=== PATIENT | female | born 1935 | race Caucasian/White ===

== ENCOUNTER 2023-01-24 15:13 | Inpatient (IN) | payer MEDICARE, BC ==
[~2023-01-24] VITALS: Ht 160 cm; Wt 69.9 kg
--- NOTE | 2023-01-24 14:00 | NUR ---
NADIA NOTES - MRSA COLLECTED, CALLED LABORATORY FOR PICK-UP Addendum: 01/24/23 at 1815 by CHARITY REINOSO RN INCORRECT TIME: 1600
[2023-01-24 15:25] VITALS: BP 159/82
--- NOTE | 2023-01-24 15:45 | NUR ---
GPS HIGHWAY PATROL OFFICER NOTE: PT IS A 87 YO FEMALE ADMITTED FROM [facility], PLACED ON 5150 FOR DANGER TO SELF, PER HOLD "DAUGHTER KRYSTAL HAN RECEIVED A CALL FROM PATIENT WHO SAID SHE WANTED TO KILL HERSELF AND TOOK A BUNCH OF OXYCODONE AND OXYCONTIN OF UNKNOWN AMOUNT", THIS WAS DAYS AGO, ON 01/22/2023. UPON FACE TO FACE, PT IS AOX4, DISHEVELED, CLEAR SPEECH, PATIENT DENIES SUICIDAL IDEATION, HOMICIDAL IDEATION, AUDIOVISUAL HALLUCINATIONS, PT IS DEPRESSED, ANXIOUS, DISORGANIZED, EPISODES OF CONFUSION AND FORGETFULNESS. VS TAKEN, STABLE, RECORDED. ON ROOM AIR, NOT IN ANY APPARENT DISTRESS AT THE MOMENT, DENIES PAIN NOR DISCOMFORT, SKIN IS INTACT. CONTACTED DR LOGAN AND DR UGARTE AND INFORMED THEM OF THE ADMISSION WITH PSYCHIATRIC ADMITTING ORDERS. PATIENT'S HANDBOOK GIVEN WITH THE PATIENT'S RIGHT AND GUIDE TO PRESCRIPTION. WILL CONTINUE TO MONITOR PATIENT Q15 MINUTES FOR SAFETY AND BEHAVIOR PER GPS PROTOCOL.
[2023-01-24] MEDS ORDERED: BLOOD SUGAR DIAGNOSTIC 1 EACH STRIP IN ONE (16:30)
[2023-01-24] MEDS ORDERED: MAG HYDROX/AL HYDROX/SIMETH 30 ML UDC PO PRN (16:30)
[2023-01-24] MEDS ORDERED: ZOLPIDEM TARTRATE 5 MG TABLET PO PRN (16:30)
[2023-01-24] MEDS ORDERED: SIMV-49 PO (16:33)
[2023-01-24] MEDS ORDERED: VENL150C58 PO (16:33)
[2023-01-24] MEDS ORDERED: ALPR0.255 PO (16:33)
[2023-01-24] MEDS ORDERED: AMLO-212 PO (16:33)
[2023-01-24] MEDS ORDERED: TRAZ-257 PO (16:33)
[2023-01-24] MEDS ORDERED: GABA300C PO (16:33)
[2023-01-24] MEDS ORDERED: LEVO88TA5 PO (16:33)
[2023-01-24] MEDS ORDERED: VALS160T29 PO (16:33)
[2023-01-24 16:40] VITALS: BP 159/82
[2023-01-24] MEDS ORDERED: CHOL100043 PO (16:46)
[2023-01-24] MEDS ORDERED: OXYC1TAB12 PO (16:52)
[2023-01-24] MEDS: LORAZEPAM 0.5 MG TABLET PO PRN (17:53)
--- NOTE | 2023-01-24 18:00 | NUR ---
RN NOTES - PATIENT APPEARS TO BE AGITATED, ANXIOUS, EMOTIONAL, CRYING, ASKING FOR ANXIETY MEDICATION - GIVEN ATIVAN PO PRN ORDERED. WILL CONTINUE TO MONITOR
--- NOTE | 2023-01-24 18:05 | NUR ---
RN NOTES - PT REFUSED ALL HER DINNER SAYING IT IS "UNAPPETIZING", I OFFERED GELATIN AND CRACKERS AND APPLE SAUCE, PT AGREED. ENCOURAGED PT TO EAT, SHE SAID SHE WILL EAT THEM, LEFT SERVINGS, OPENED. WILL CONTINUE TO MONITOR.
--- NOTE | 2023-01-24 19:24 | NUR ---
GPS RN CLOSING NOTES PATIENT IS WITH SON NURA AT BEDSIDE, PATIENT CALM, AOX4, HARD OF HEADING, RESPONSIVE, ABLE TO MAKE NEEDS KNOWN. NURA WANTS TO SPEAK TO DR LOGAN, MENTIONED I LEFT A NOTE FOR DR LOGAN TO CONTACT HIM TOMORROW MORNING REGARDING THE STATUS OF HIS MOM AND SOME QUESTIONS REGARDING ATIVAN, GABAPENTIN VS WELLBUTRIN, AND TRAZODONE MEDICATIONS. PT IS NOT IN ANY FORM OF ACUTE DISTRESS AT THIS TIME. PROVIDED WALKER FOR THE PATIENT WELL. NO SI/HI AT THIS TIME. SAFETY MEASURES MAINTAINED. ENDORSED TO BLUEPRINT PROCESSOR NURSE.
[2023-01-24 20:27] VITALS: BP 158/91
--- NOTE | 2023-01-25 05:41 | NUR ---
END OF SHIFT REPORT Patient in bed, sleeping arouses easily. Calm and cooperative during the shift. Adequate sleep with Ambien. Fall precaution maintained. Denies pain. Plan for Continue inpatient MHU hospitalization. Behavior management per psychiatry. Will endorse to oncoming RN.
[2023-01-25 08:00] VITALS: BP 132/79
[2023-01-25 08:06] LABS: ALANINE AMINOTRANSFERASE 16 U/L (12-78); ALKALINE PHOSPHATASE 102 U/L (46-116); ASPARTATE AMINOTRANSFERASE 27 U/L (15-37); BILIRUBIN,TOTAL 0.5 mg/dL (0.2-1.0); CARBON DIOXIDE 23 mmol/L (21-32); CHLORIDE 106 mmol/L (98-107); CREATININE 1.3 mg/dL (0.6-1.3); GLUCOSE 106 mg/dL (74-106); POTASSIUM 3.6 mmol/L (3.5-5.1); SODIUM SERUM 141 mmol/L (136-145); UREA NITROGEN, BLOOD 19 mg/dL (7-18)
[2023-01-25 08:07] LABS: ALBUMIN 3.5 g/dL (3.4-5.0)
[2023-01-25 08:20] LABS: CHOLESTEROL 173 mg/dL (<200); TRIGLYCERIDES 149 mg/dL (30-150)
[2023-01-25 08:21] LABS: HDL CHOLESTEROL 70 mg/dL (40-60); LDL 89 mg/dL (0-99)
--- NOTE | 2023-01-25 10:18 | NUR ---
ERIC Initial Discharge Note: Patient currently resides at home alone located at [address] [place] [address]; ([phone]). ERIC will contact pt's daughter Yady ([phone]) to discuss treatment/discharge plan. ERIC will work with the MD, family, and pt to help coordinate appropriate discharge.
--- NOTE | 2023-01-25 10:18 | NUR ---
ERIC Clinical Note: Pt placed on a 5150 hold for danger to himself. Per hold, pt has been depressed and attempted to overdose on oxycodone. Patient currently resides at home alone located at [address] [place] [address]; ([phone]). ERIC will contact pt's daughter Yady ([phone]) to discuss treatment/discharge plan.
--- NOTE | 2023-01-25 10:19 | NUR ---
Treatment Plan: Pt refused to sign treatment plan and was suspicious.
--- NOTE | 2023-01-25 12:45 | NUR ---
Social Work Note/Substance Abuse Intervention: Patient was provided with a brief substance abuse intervention and referred to [facility] ([phone]), [facility] ([phone]), and [facility] ([phone]) for overdosing on oxycodone.
--- NOTE | 2023-01-25 13:23 | NUR ---
ERIC Family Contact: ERIC contacted pt's daughter Yady ([phone]) and discussed treatment/discharge plan. Daughter stated that pt will be returning home and she is the DPOA, she will send this justowriter operator documents. She stated that she no longer wants to be involved in her mother's treatment. She stated her brother Franc ([phone]) should be contacted. ERIC contacted brother and left a voicemail. Daughter Yady shared that pt has had depression for many years and last psych hospitalization was back in 1973. She shared pt has had shock therapy treatment. She has had multiple break downs and has been battling depression her whole life.
[2023-01-25] MEDS: VENLAFAXINE XR 75 MG CAP.SR.24H PO SCH (14:56)
[2023-01-25] MEDS: BUPROPION XL 150 MG TAB.ER.24 PO SCH (14:56)
[2023-01-25 16:00] VITALS: BP 140/79
[2023-01-25] MEDS: LORAZEPAM 0.5 MG TABLET PO PRN (17:33)
[2023-01-25] MEDS: ENSURE ENLIVE CHOC 237 ML CAN PO SCH (17:33)
--- NOTE | 2023-01-25 17:33 | NUR ---
PATIENT FELT SO DEPRESSED AND VERBALIZES " MY DEPRESSION MEDICATIONS HAS NOT KICKED IN". PATIENT CRIED FOR A BIT AND ASKED FOR ANY ANXIETY MEDICATIONS. ATIVAN 1 MG 2 TABS (0.5/TAB), PRN WERE GIVEN PRESCRIBED
--- NOTE | 2023-01-25 20:40 | NUR ---
RN NOTE PT IN DINING ROOM SITTING IN CHAIR. TRIED TO GET UP TO WALKER, BECAME OUT OF BALANCE THEN FELL ON THE FLOOR ON HER BUTTOCKS. FOUND IN SITTING POSITION. PT DENIES HITTING HER HEAD. PT STATED USING R ELBOW FOR SUPPORT WHILE LEANING ON THE FLOOR. ASSISTED BACK TO BED WITH TWO PERSON ASSIST. VITAL SIGNS STABLE. FULL ASSESSMENT PERFORMED, RANGE OF MOTION WNL. DENIES ANY PAIN AND NO BRUISING NOTED IN BUTTOCKS. INSTRUCTED TO CALL FOR HELP WHEN NEEDED. PT VERBALIZED UNDERSTANDING. DR GARCIA NOTIFIED AND ORDERED XRAY OF RIGHT HIP AND RIGHT ELBOW. [employer] NURSING FINANCE BUSINESS MANAGER, MALU, NOTIFIED ABOUT INCIDENT. PT SON, TERESITA DINH, WAS IN UNIT DURING INCIDENT AND AWARE OF WHAT HAPPENED. PT SON STATED "SHE'S ALRIGHT, SHE'S FINE". INFORMED SON THAT WE WILL HAVE TO INFORM MD ABOUT WHAT HAPPENED AND VERBALIZED APPRECIATION FOR CARE. WILL CONTINUE TO MONITOR AND ASSIST PATIENT. Addendum: 01/25/23 at 2126 by MALCOLM CH RN PT EVALUATION ALSO ORDERED.
[2023-01-25 20:41] VITALS: BP_SYST 126; BP_SYST 128; BP_DIAS 58; BP_DIAS 65
[2023-01-25] MEDS: TRAZODONE 50 MG TABLET PO SCH (21:47)
[2023-01-25] MEDS: GABAPENTIN 300 MG CAPSULE PO SCH (21:47)
--- NOTE | 2023-01-26 07:37 | NUR ---
GPS RN CLOSING NOTES PT IN BED RESTING AT THIS TIME. A/O X3, WITH MOMENTS OF CONFUSION, FORGETFULNESS. S/P GLF LAST NIGHT, INTERVENTIONS PERFORMED PER PROTOCOL. PT DENIES PAIN, NO BRUISING NOTED, XRAYS ARE NEGATIVE. PT STAYED IN BED ALL NIGHT. WILL ENDORSE YOBANI TO DAY SHIFT NURSE.
[2023-01-26] MEDS: ENSURE ENLIVE CHOC 237 ML CAN PO SCH ×3 (07:48→17:19)
[2023-01-26 08:00] VITALS: BP 118/61
[2023-01-26] MEDS: VENLAFAXINE XR 75 MG CAP.SR.24H PO SCH (08:22)
[2023-01-26] MEDS: BUPROPION XL 150 MG TAB.ER.24 PO SCH (08:22)
--- NOTE | 2023-01-26 10:15 | NUR ---
ERIC Note: SW met with pt and gave pt options. SW offered pt nursing facility option and assisted living options. Pt refused nursing facility. Pt stated that her source of income is SSI and she receives about $1,200. [address] her with $1,000 she was not agreeable of this. She said that she would want to sell her house first before going to a [facility]. She prefers to go to [facility] that cost about $6,000. ERIC will discuss this with family.
--- NOTE | 2023-01-26 10:16 | NUR ---
ERIC Family: ERIC contacted pt's son Franc ([phone]) and left a voicemail to contact this publications writer to discuss discharge planning.
--- NOTE | 2023-01-26 15:01 | NUR ---
ERIC Family: ERIC contacted pt's son Franc ([phone]) who stated that upon dc he would want pt to return back home. He stated that he will be taking care of her and he will pick her up when stable. ERIC gave him caregiving resources [facility] ([phone]).
[2023-01-26] MEDS: MAGNESIUM HYDROXIDE 30 ML UDC PO PRN (15:50)
--- NOTE | 2023-01-26 15:53 | NUR ---
RN NOTES: PT COMPLAINED THAT SHE'S CONSTIPATED. PRN MOM 30ML PO GIVEN AT 1550. WILL MONITOR FOR ANY BM.
[2023-01-26 16:00] VITALS: BP 124/68
[2023-01-26 20:32] VITALS: BP 142/88
[2023-01-26] MEDS: GABAPENTIN 300 MG CAPSULE PO SCH (21:19)
[2023-01-26] MEDS: TRAZODONE 50 MG TABLET PO SCH (21:20)
[2023-01-27] MEDS: ACETAMINOPHEN 325 MG TABLET PO PRN ×2 (01:56→17:06)
--- NOTE | 2023-01-27 02:00 | NUR ---
RN NOTE PT STATED THAT SHE NEEDED TYLENOL FOR HER BACK PAIN. SHE STATED HER BACK PAIN WAS 4 OUT OF 10 ON A ZERO TO TEN PAIN SCALE. PRN PO MEDICATION, TYLENOL 650 MG, GIVEN PER MD ORDER.
[2023-01-27 08:00] VITALS: BP 126/66
[2023-01-27] MEDS: BUPROPION XL 150 MG TAB.ER.24 PO SCH (09:51)
[2023-01-27] MEDS: VENLAFAXINE XR 75 MG CAP.SR.24H PO SCH (09:51)
[2023-01-27] MEDS: ENSURE ENLIVE CHOC 237 ML CAN PO SCH ×3 (09:52→17:05)
--- NOTE | 2023-01-27 09:53 | NUR ---
Court Notification: SW contacted pt's son Franc ([phone]) left a voicemail of [phone] hearing.
--- NOTE | 2023-01-27 09:53 | NUR ---
Court Hearing: Patient's court hearing for 5250 was today and it was upheld for GD and danger to self.
[2023-01-27 16:00] VITALS: BP 152/94
[2023-01-27] MEDS ORDERED: oxyCODONE/APAP (5/325 MG) 1 UDTAB TABLET PO PRN (16:30)
[2023-01-27] MEDS: LEVOTHYROXINE SODIUM 88 MCG TABLET PO SCH (17:05)
[2023-01-27] MEDS: SIMVASTATIN 20 MG TABLET PO SCH (17:06)
[2023-01-27] MEDS: MAGNESIUM HYDROXIDE 30 ML UDC PO PRN (17:06)
--- NOTE | 2023-01-27 19:06 | NUR ---
PATIENT HAS BEEN COOPERATIVE BUT MOOD CHANGES FROM TIME TO TIME. PATIENT IS S/P FALL 01/25/23 HOWEVER, AMBULATORY AND OBSERVED WALKING JUST FINE AND STABLE DURING THE DAY. PATIENT ASKED FOR TYLENOL, PRN LATER IN THE DAY
[2023-01-27] MEDS: TRAZODONE 50 MG TABLET PO SCH (21:02)
[2023-01-27] MEDS: GABAPENTIN 300 MG CAPSULE PO SCH (21:02)
[2023-01-28 08:00] VITALS: BP 148/74
[2023-01-28] MEDS: CHOLECALCIFEROL 1,000 UNIT TABLET (VIT D3) PO SCH (08:14)
[2023-01-28] MEDS: BUPROPION XL 150 MG TAB.ER.24 PO SCH (08:14)
[2023-01-28] MEDS: LEVOTHYROXINE SODIUM 88 MCG TABLET PO SCH (08:14)
[2023-01-28] MEDS: VENLAFAXINE XR 75 MG CAP.SR.24H PO SCH (08:14)
[2023-01-28] MEDS: VALSARTAN 40 MG TABLET PO SCH (08:15)
[2023-01-28] MEDS: ENSURE ENLIVE CHOC 237 ML CAN PO SCH ×3 (08:15→17:03)
[2023-01-28 16:00] VITALS: BP 124/71
[2023-01-28] MEDS: SIMVASTATIN 20 MG TABLET PO SCH (17:03)
[2023-01-28 20:00] VITALS: BP 141/72
--- NOTE | 2023-01-28 20:02 | NUR ---
RN NOTES: RECEIVED PATIENT RESTING IN ROOM, A/OX3. NO S/SX OF ACUTE DISTRESS NOTED. PATIENT REMAINS EASILY AGITATED,DISORGNIZED,DEPRESSED, MED COMPLIANT, COOPERATIVE TO CARE. DENIES SI/HI/AVH AT THIS TIME. SAFETY PRECAUTIONS MAINTAINED. WILL CONTINUE TO MONITOR Q15MIN ROUNDS FOR SAFETY AND BEHAVIOR.
[2023-01-28] MEDS: TRAZODONE 50 MG TABLET PO SCH (21:17)
[2023-01-28] MEDS: GABAPENTIN 300 MG CAPSULE PO SCH (21:17)
[2023-01-29 08:00] VITALS: BP 163/89
[2023-01-29] MEDS: LEVOTHYROXINE SODIUM 88 MCG TABLET PO SCH (08:29)
[2023-01-29] MEDS: ENSURE ENLIVE CHOC 237 ML CAN PO SCH ×3 (08:34→17:13)
[2023-01-29] MEDS: CHOLECALCIFEROL 1,000 UNIT TABLET (VIT D3) PO SCH (08:35)
[2023-01-29] MEDS: VALSARTAN 40 MG TABLET PO SCH (08:36)
[2023-01-29] MEDS: VENLAFAXINE XR 75 MG CAP.SR.24H PO SCH (08:36)
[2023-01-29] MEDS: BUPROPION XL 150 MG TAB.ER.24 PO SCH (08:36)
[2023-01-29] MEDS: MAGNESIUM HYDROXIDE 30 ML UDC PO PRN (15:28)
--- NOTE | 2023-01-29 15:30 | NUR ---
NURSE NOTE: PER PT HAVING PROBLEMS HAVING A BM. REQUESTED MILK OF MAGNESIUM. MOM ADMIN ORDERED. PT ANDERSON WELL. WILL CONT TO MONITOR.
[2023-01-29 16:00] VITALS: BP 121/79
[2023-01-29] MEDS: SIMVASTATIN 20 MG TABLET PO SCH (17:12)
[2023-01-29] MEDS: TRAZODONE 50 MG TABLET PO SCH (21:24)
[2023-01-29] MEDS: GABAPENTIN 300 MG CAPSULE PO SCH (21:24)
[2023-01-29 21:31] VITALS: BP 149/83
[2023-01-30 08:00] VITALS: BP 116/56
[2023-01-30] MEDS: LEVOTHYROXINE SODIUM 88 MCG TABLET PO SCH (08:12)
[2023-01-30] MEDS: ENSURE ENLIVE CHOC 237 ML CAN PO SCH ×3 (08:38→17:08)
[2023-01-30] MEDS: VENLAFAXINE XR 75 MG CAP.SR.24H PO SCH (09:09)
[2023-01-30] MEDS: BUPROPION XL 150 MG TAB.ER.24 PO SCH (09:09)
[2023-01-30] MEDS: CHOLECALCIFEROL 1,000 UNIT TABLET (VIT D3) PO SCH (09:09)
[2023-01-30] MEDS: VALSARTAN 40 MG TABLET PO SCH (09:10)
--- NOTE | 2023-01-30 09:56 | NUR ---
ERIC Family Contact: ERIC contacted pt's son Franc ([phone]) to confirm if pt will go to [facility] because this is what the pt keeps mentioning. ERIC left a voicemail to contact this senior writer back. Son had stated to this senior writer that he was searching for a live-in caregiver.
--- NOTE | 2023-01-30 10:45 | NUR ---
SW Facility Contact: ERIC contacted [facility] living and spoke with Odette Delvalle ([phone]) who stated that Bonnie will assess the pt today 01/30 at 2PM.
--- NOTE | 2023-01-30 14:36 | NUR ---
ERIC Note: SW placed DPOA paperwork in patient's chart.
--- NOTE | 2023-01-30 14:54 | NUR ---
Facility Contact: Bonnie admin from [facility] ([phone]) came to assess the pt on the unit. She reported that the daughter DPOA would need to be informed of this decision. SW will contact daughter to discuss further.
[2023-01-30 16:00] VITALS: BP 117/69
[2023-01-30] MEDS: SIMVASTATIN 20 MG TABLET PO SCH (17:08)
[2023-01-30] MEDS: MAGNESIUM HYDROXIDE 30 ML UDC PO PRN (17:39)
--- NOTE | 2023-01-30 17:39 | NUR ---
RN- NOTES M.O.M. ADMINISTERED DUE TO PATIENT STATING, "I NEED M.O.M. BECAUSE I HAVEN'T BEEN ABLE TO GO TO THE RESTROOM TODAY."
--- NOTE | 2023-01-30 19:20 | NUR ---
RN OPENING NOTES RECEIVED PATIENT AWAKE IN BED. PATIENT IS A/O TIMES 3 WITH EPISODES OF CONFUSION. NO PAIN NOTED. NO SOB NOTED. NO DISTRESS NOTED. ALL NEEDS ATTENDED. ABLE TO MAKE NEEDS KNOWN. PATIENT AMBULATES WITH WALKER. ALL SAFETY MEASURES IN PLACE. BED LOCKED IN THE LOWEST POSITION. TABLE IN EASY REACH. SIDE RAILS UP TIMES 2. WILL CONTINUE TO MONITOR CLOSELY.
[2023-01-30 19:53] VITALS: BP 128/66
[2023-01-30] MEDS: GABAPENTIN 300 MG CAPSULE PO SCH (22:37)
[2023-01-30] MEDS: TRAZODONE 50 MG TABLET PO SCH (22:37)
--- NOTE | 2023-01-31 06:29 | NUR ---
RN CLOSING NOTES PATIENT SLEEPS IN BED. PATIENT IS A/O TIMES 3 WITH EPISODES OF CONFUSION. NO PAIN NOTED. NO SOB NOTED. NO DISTRESS NOTED. ALL NEEDS ATTENDED.ALL DUE MEDS GIVEN ORDERED. ABLE TO MAKE NEEDS KNOWN. PATIENT AMBULATES WITH WALKER. ALL SAFETY MEASURES IN PLACE. BED LOCKED IN THE LOWEST POSITION. TABLE IN EASY REACH. SIDE RAILS UP TIMES 2. WILL ENDORSE FOR YOBANI.
[2023-01-31] MEDS: ENSURE ENLIVE CHOC 237 ML CAN PO SCH ×3 (07:56→17:02)
[2023-01-31] MEDS: LEVOTHYROXINE SODIUM 88 MCG TABLET PO SCH (07:56)
[2023-01-31 08:00] VITALS: BP 149/81
[2023-01-31] MEDS: VENLAFAXINE XR 75 MG CAP.SR.24H PO SCH (08:00)
[2023-01-31] MEDS: CHOLECALCIFEROL 1,000 UNIT TABLET (VIT D3) PO SCH (08:00)
[2023-01-31] MEDS: BUPROPION XL 150 MG TAB.ER.24 PO SCH (08:01)
[2023-01-31] MEDS: VALSARTAN 40 MG TABLET PO SCH (09:00)
--- NOTE | 2023-01-31 10:46 | NUR ---
SW Note: Pt stated that she would want to be discharged back home from the hospital and then she will decide if she wants to go to [facility].
--- NOTE | 2023-01-31 10:46 | NUR ---
SW Contact: SW contacted pt's caregiver Zhanna ([phone]) and notified of discharge and when she will be able to sheepskin pickler pt.
--- NOTE | 2023-01-31 13:47 | NUR ---
ERIC Family Contact: ERIC contacted pt's daughter Yady ([phone]) DPOA to discuss discharge planning but she did not answer and this editorial writer left a voicemail.
--- NOTE | 2023-01-31 14:22 | NUR ---
ERIC Family Contact: ERIC contacted pt's daughter Yady ([phone]) DPOA stated that she wants pt to go to [facility]. She stated that she will be discussing the financial part with Atri. She reported that her brother Franc was abusing drugs since the age of 12 and has been sober for the past 4 years. She reported that her mother helps him financially to pay for his rent. She reported no financial abuse. ERIC will work with the family to help with discharge.
--- NOTE | 2023-01-31 14:24 | NUR ---
ERIC Family Contact: ERIC contacted pt's son Franc ([phone]) and was insisting on pt to return back home. He stated that he needs to coordinate appropriate care and needs early notification. ERIC had given son resources last week for caregiving resources and gave early notification of dc day.
[2023-01-31 16:00] VITALS: BP 115/59
[2023-01-31 16:10] LABS: BILIRUBIN,URINE NEGATIVE (NEGATIVE); COLOR,URINE YELLOW (YELLOW); LEUKOCYTE ESTERASE ,URINE TRACE (NEGATIVE); NITRITE, URINE POSITIVE (NEGATIVE); PROTEIN,URINE NEGATIVE (NEGATIVE); UGLUCOSE NEGATIVE (NEGATIVE); UROBILINOGEN,URINE 0.2 EU/dL (0.2)
[2023-01-31 16:47] LABS: BACTERIA,URINE Many /HPF (None Seen); SQUAMOUS EPITHELIAL CELL,UR Moderate /HPF (None Seen)
[2023-01-31] MEDS: SIMVASTATIN 20 MG TABLET PO SCH (17:02)
--- NOTE | 2023-01-31 20:00 | NUR ---
RN NOTE RECEIVED PATIENT AWAKE, RESTING IN ROOM. PT A/O X3, ABLE TO MAKE NEEDS KNOWN. NO S/S OF ACUTE DISTRESS NOTED. PATIENT REMAINS EASILY AGITATED, DISORGANIZED, DEPRESSED, BUT MED COMPLIANT. DENIES SI/HI AT THIS TIME. SAFETY PRECAUTIONS MAINTAINED. WILL CONTINUE TO MONITOR Q15MIN ROUNDS FOR SAFETY AND BEHAVIORS.
[2023-01-31 20:01] VITALS: BP 151/82
[2023-01-31] MEDS: GABAPENTIN 300 MG CAPSULE PO SCH (21:27)
[2023-01-31] MEDS: TRAZODONE 50 MG TABLET PO SCH (21:27)
--- NOTE | 2023-02-01 06:55 | NUR ---
RN NOTE LEFT PATIENT AWAKE, RESTING IN ROOM. PT A/O X3, ABLE TO MAKE NEEDS KNOWN. NO S/S OF ACUTE DISTRESS NOTED. PATIENT REMAINS EASILY AGITATED, DISORGANIZED, DEPRESSED, BUT MED COMPLIANT. DENIES SI/HI AT THIS TIME. SAFETY PRECAUTIONS MAINTAINED. WILL ENDORSE PT TO AM SHIFT NURSE FOR YOBANI.
--- NOTE | 2023-02-01 07:50 | NUR ---
RN OPENING NOTE PATIENT AWAKE IN BED RESTING, A/O X 3, COOPERATIVE, COMPLIANT WITH MEDICATIONS. NO S/S OF PAIN NOTED AT THIS TIME. ON ROOM AIR, BREATHING EVEN UNLABORED, NO DISTRESS OR SHORTNESS OF BREATH NOTED. PATIENT DENIES SUICIDE IDEATIONS AND HOMICIDAL IDEATIONS AT THIS TIME. FALL AND SAFETY MEASURES IN PLACE, BED ALARM ON, BED IN LOW AND LOCK POSITION, CALL LIGHT AND TABLE WITHIN EASY REACH, SIDE RAILS UP X2. WILL CONTINUE TO MONITOR Q15 MIN. WITH THE HELP OF STAFF TO MAINTAIN SAFETY.
[2023-02-01 08:00] VITALS: BP 144/78
--- NOTE | 2023-02-01 08:41 | NUR ---
Facility Contact: SW spoke with Bonnie zambrano from [facility] ([phone]) who stated that pt is accepted and that they have discussed with DPOA daughter Yady who is agreeable of pt transferring to [facility] from the hospital.
--- NOTE | 2023-02-01 08:43 | NUR ---
ERIC Family Contact: ERIC contacted pt's son Franc ([phone]) and left a voicemail of the discharge plan.
--- NOTE | 2023-02-01 08:46 | NUR ---
ERIC Family Contact: ERIC contacted pt's daughter Yady ([phone]) and stated that she would want pt to transfer to [facility] after the hospital. ERIC notified Misti stated pt is welcomed Monday and they will provide transportation. She did state to this telegraphic typewriter installer to no longer contact Franc the son. ERIC notified ERIC left him a voicemail of dc plan.
[2023-02-01] MEDS: BUPROPION XL 150 MG TAB.ER.24 PO SCH (09:41)
[2023-02-01] MEDS: CHOLECALCIFEROL 1,000 UNIT TABLET (VIT D3) PO SCH (09:42)
[2023-02-01] MEDS: VENLAFAXINE XR 75 MG CAP.SR.24H PO SCH (09:42)
[2023-02-01] MEDS: ENSURE ENLIVE CHOC 237 ML CAN PO SCH ×3 (09:42→17:25)
[2023-02-01] MEDS: LEVOTHYROXINE SODIUM 88 MCG TABLET PO SCH (09:42)
[2023-02-01] MEDS: VALSARTAN 80 MG TABLET PO SCH (10:06)
[2023-02-01] MEDS: MAGNESIUM HYDROXIDE 30 ML UDC PO PRN (13:41)
[2023-02-01] MEDS: ACETAMINOPHEN 325 MG TABLET PO PRN (15:15)
[2023-02-01 16:00] VITALS: BP 129/57
[2023-02-01] MEDS: SIMVASTATIN 20 MG TABLET PO SCH (17:25)
[2023-02-01 19:51] VITALS: BP 119/64
[2023-02-01] MEDS: TRAZODONE 50 MG TABLET PO SCH (21:29)
[2023-02-01] MEDS: CEPHALEXIN MONOHYDRATE 500 MG CAPSULE PO SCH (21:29)
[2023-02-01] MEDS: GABAPENTIN 300 MG CAPSULE PO SCH (21:29)
[2023-02-02 08:00] VITALS: BP 143/73
[2023-02-02] MEDS: ENSURE ENLIVE CHOC 237 ML CAN PO SCH ×3 (08:00→16:41)
[2023-02-02] MEDS: BUPROPION XL 150 MG TAB.ER.24 PO SCH (08:32)
[2023-02-02] MEDS: CHOLECALCIFEROL 1,000 UNIT TABLET (VIT D3) PO SCH (08:32)
[2023-02-02] MEDS: LEVOTHYROXINE SODIUM 88 MCG TABLET PO SCH (08:32)
[2023-02-02] MEDS: CEPHALEXIN MONOHYDRATE 500 MG CAPSULE PO SCH ×2 (08:32→22:11)
[2023-02-02] MEDS: VALSARTAN 80 MG TABLET PO SCH (08:33)
[2023-02-02] MEDS: VENLAFAXINE XR 75 MG CAP.SR.24H PO SCH (08:33)
[2023-02-02 16:00] VITALS: BP 132/78
[2023-02-02] MEDS: SIMVASTATIN 20 MG TABLET PO SCH (17:11)
--- NOTE | 2023-02-02 18:42 | NUR ---
RN- CLOSING NOTES PATIENT IS AWAKE, AMBULATING WITH WALKER, BREATHING EVEN AND NON LABORED WITH NO S/S OF DISTRESS. PATIENT IS GUARDED, ANXIOUS, NEEDY, DISORIENTED, AND PERSEVERATING ON OBTAINING MORE PADS FOR HER UNDERWEAR. PATIENT IS MEDICATION COMPLIANT. PATIENT IS COMPLAINING OF REQUIRING STRONG STOOL SOFTENERS, LAST BM NOTED LAST NIGHT. REORIENTATION PROVIDED, PATIENT STRONGLY DISAGREES WITH ALL STATEMENTS. DENIES SI/HI AT THIS TIME. WILL CONTINUE TO MONITOR Q 15 MINUTES FOR SAFETY AND BEHAVIOR.
[2023-02-02 19:56] VITALS: BP 138/76
[2023-02-02 20:00] VITALS: BP 148/56
[2023-02-02] MEDS: GABAPENTIN 300 MG CAPSULE PO SCH (22:10)
[2023-02-02] MEDS: TRAZODONE 50 MG TABLET PO SCH (22:11)
--- NOTE | 2023-02-03 05:00 | NUR ---
CLSING NOTES: RECEIVED IN THE EARLY EVENING PATIENT WAS AMBULATING IN THE CORRIDOR USING A WALKER. ALERT AD ORIENTATED X4 COMMENTED THE LIBRARY HERE IS "SLIM pICKINGS, BUT FOUND 2 BOOKS SHE IS READING, AND SHE TALKED ABOUT THEM QUITE AWHILE. SHE IS WEARING A DIAPER SHE STATES SHE "WETTING ALOT D/T HER URINARY INFECTION. SHE IS ON KEFLEX SHE WAS IN BED BY 10PM SHE TOOK HER MEDICATIONS W/O A PROBLEM
[2023-02-03 08:00] VITALS: BP 113/68
[2023-02-03] MEDS: CHOLECALCIFEROL 1,000 UNIT TABLET (VIT D3) PO SCH (08:46)
[2023-02-03] MEDS: LEVOTHYROXINE SODIUM 88 MCG TABLET PO SCH (08:46)
[2023-02-03] MEDS: ACETAMINOPHEN 325 MG TABLET PO PRN (08:46)
[2023-02-03] MEDS: ENSURE ENLIVE CHOC 237 ML CAN PO SCH ×3 (08:46→16:55)
[2023-02-03] MEDS: CEPHALEXIN MONOHYDRATE 500 MG CAPSULE PO SCH ×2 (08:46→20:41)
[2023-02-03] MEDS: VENLAFAXINE XR 75 MG CAP.SR.24H PO SCH (08:46)
[2023-02-03] MEDS: BUPROPION XL 150 MG TAB.ER.24 PO SCH (08:46)
[2023-02-03] MEDS: VALSARTAN 80 MG TABLET PO SCH (08:47)
[2023-02-03 16:00] VITALS: BP 113/71
[2023-02-03] MEDS: SIMVASTATIN 20 MG TABLET PO SCH (17:02)
--- NOTE | 2023-02-03 17:21 | NUR ---
RN-NOTES PATIENT VISIBLE IN THE UNIT ,A/O X3 , NO ACUTE DISTRESS NOTED. COMPLIANT WITH MEDICATIONS. NOTED WITH NEEDY EASILY ANGRY BEHAVIOR.PATIENT ABLE TO VERBALIZED FEELINGS AND CONCERN TO THE STAFF.PATIENT USING WALKER TO AMBULATE. ALL NEEDS ATTENDED AND ANTICIPATED WILL CONT. MONITORING FOR SAFETY AND BEHAVIOR.WILL ENDORSE TO INCOMING NURSE FOR THE CONTINUITY OF CARE.
[2023-02-03 20:42] VITALS: BP 134/68
[2023-02-03] MEDS: TRAZODONE 50 MG TABLET PO SCH (21:19)
[2023-02-03] MEDS: SENNOSIDES 8.6 MG TABLET PO SCH (21:20)
[2023-02-03] MEDS: GABAPENTIN 300 MG CAPSULE PO SCH (21:20)
--- NOTE | 2023-02-04 06:20 | NUR ---
RN NOTES: RESTING IN ROOM AND 9 HOURS OF SLEEP , A/O2,3 , ABLE TO MAKE NEEDS KNOWN. NO S/S OF ACUTE DISTRESS NOTED. PATIENT REMAINS EASILY, PARANOID AGITATED,FORGET FUL DISORGANIZED, DEPRESSED, BUT MED COMPLIANT. ALL NEEDS ATTENDED AND ANTICIPATED DENIES SI/HI AT THIS TIME. SAFETY PRECAUTIONS MAINTAINED. WILL CONTINUITY WITH CARE .
[2023-02-04 08:00] VITALS: BP 123/81
[2023-02-04] MEDS: LEVOTHYROXINE SODIUM 88 MCG TABLET PO SCH (08:31)
[2023-02-04] MEDS: BUPROPION XL 150 MG TAB.ER.24 PO SCH (08:31)
[2023-02-04] MEDS: VALSARTAN 80 MG TABLET PO SCH (08:31)
[2023-02-04] MEDS: CHOLECALCIFEROL 1,000 UNIT TABLET (VIT D3) PO SCH (08:31)
[2023-02-04] MEDS: CEPHALEXIN MONOHYDRATE 500 MG CAPSULE PO SCH ×2 (08:31→20:31)
[2023-02-04] MEDS: VENLAFAXINE XR 75 MG CAP.SR.24H PO SCH (08:31)
[2023-02-04] MEDS: ENSURE ENLIVE CHOC 237 ML CAN PO SCH ×3 (08:32→17:06)
[2023-02-04] MEDS: ACETAMINOPHEN 325 MG TABLET PO PRN (11:20)
--- NOTE | 2023-02-04 11:21 | NUR ---
RN-NOTES PATIENT C/O LOWER BACK PAIN AND REQUESTING TYLENOL. TYLENOL 650MG P.O GIVEN PRN ORDER.
--- NOTE | 2023-02-04 12:30 | NUR ---
RN-NOTES PATIENT LYING IN BED AWAKE,ALERT CALM,NO ACUTE DISTRESS NOTED.STATED" TYLENOL HELPS MY BACK PAIN".
[2023-02-04 16:00] VITALS: BP 117/66
[2023-02-04] MEDS: SIMVASTATIN 20 MG TABLET PO SCH (17:06)
--- NOTE | 2023-02-04 18:23 | NUR ---
RN-NOTES PATIENT VISIBLE IN THE UNIT ,A/O X3 , NO ACUTE DISTRESS NOTED.CALM AND COOPERATIVE WITH STAFF. COMPLIANT WITH MEDICATIONS. NOTED WITH NEEDY EASILY ANGRY BEHAVIOR.PATIENT ABLE TO VERBALIZED FEELINGS AND CONCERN TO THE STAFF.PATIENT USING WALKER TO AMBULATE. ALL NEEDS ATTENDED AND ANTICIPATED WILL CONT. MONITORING FOR SAFETY AND BEHAVIOR.WILL ENDORSE TO INCOMING NURSE FOR THE CONTINUITY OF CARE.
--- NOTE | 2023-02-04 19:31 | NUR ---
RN NOTES: RECEIVED PATIENT RESTING IN ROOM, A/OX2,3. NO S/SX OF ACUTE DISTRESS NOTED. PATIENT REMAINS EASILY AGITATED, FORGETFUL ,DISORGNIZED,DEPRESSED, NEEDY , DEMANDING ,MED COMPLIANT, COOPERATIVE TO CARE. DENIES SI/HI/AVH AT THIS TIME. SAFETY PRECAUTIONS MAINTAINED. WILL CONTINUE TO MONITOR Q15MIN ROUNDS FOR SAFETY AND BEHAVIOR.
[2023-02-04 20:00] VITALS: BP 128/70
[2023-02-04] MEDS: MAGNESIUM HYDROXIDE 30 ML UDC PO PRN (20:05)
[2023-02-04] MEDS: GABAPENTIN 300 MG CAPSULE PO SCH (21:41)
[2023-02-04] MEDS: TRAZODONE 50 MG TABLET PO SCH (21:41)
[2023-02-04] MEDS: SENNOSIDES 8.6 MG TABLET PO SCH (21:41)
[2023-02-05 08:00] VITALS: BP 132/81
[2023-02-05] MEDS: LEVOTHYROXINE SODIUM 88 MCG TABLET PO SCH (08:11)
[2023-02-05] MEDS: CHOLECALCIFEROL 1,000 UNIT TABLET (VIT D3) PO SCH (08:48)
[2023-02-05] MEDS: BUPROPION XL 150 MG TAB.ER.24 PO SCH (08:48)
[2023-02-05] MEDS: VALSARTAN 80 MG TABLET PO SCH (08:48)
[2023-02-05] MEDS: CEPHALEXIN MONOHYDRATE 500 MG CAPSULE PO SCH ×2 (08:48→20:28)
[2023-02-05] MEDS: VENLAFAXINE XR 75 MG CAP.SR.24H PO SCH (08:48)
[2023-02-05] MEDS: ENSURE ENLIVE CHOC 237 ML CAN PO SCH ×3 (08:49→17:29)
[2023-02-05] MEDS ORDERED: BISACODYL SUPP (10 MG) 10 MG/SUPP.RECT SUPP.RECT RC ONE (09:30)
--- NOTE | 2023-02-05 10:15 | NUR ---
RN NOTES PATIENT VERBALIZED THAT SHE DID NOT HAVE BM FOR SEVERAL DAYS. DR. LOGAN IN THE UNIT AND ORDERED DULCOLAX SUPP. DULCOLAX SUPP 10MG GIVEN AT 1012. WILL CONTINUE TO MONITOR.
--- NOTE | 2023-02-05 11:40 | NUR ---
RN NOTES PATIENT VERBALIZED THAT SHE HAD SMALL SOFT BM TODAY, BUT STILL NOT SATISFIED. CHARGE NURSE AWARE.
[2023-02-05 16:00] VITALS: BP 129/72
[2023-02-05] MEDS: SIMVASTATIN 20 MG TABLET PO SCH (17:29)
--- NOTE | 2023-02-05 19:00 | NUR ---
RN NOTES: PATIENT IS CALM AND COOPERATIVE WITHIN THE SHIFT. ABLE TO MAKE NEEDS KNOWN. PATIENT ABLE TO SOCIALIZE WITH OTHER PATIENTS. WILL ENDORSE YOBANI TO WINDOWS MOBILE DEVELOPER.
[2023-02-05 20:07] VITALS: BP 161/79
[2023-02-05 21:00] VITALS: BP 138/68
[2023-02-05] MEDS: SENNOSIDES 8.6 MG TABLET PO SCH (21:15)
[2023-02-05] MEDS: GABAPENTIN 300 MG CAPSULE PO SCH (21:15)
[2023-02-05] MEDS: TRAZODONE 50 MG TABLET PO SCH (21:15)
[2023-02-06] MEDS: LEVOTHYROXINE SODIUM 88 MCG TABLET PO SCH (07:30)
[2023-02-06 08:00] VITALS: BP 147/67
--- NOTE | 2023-02-06 08:02 | NUR ---
SW Discharge Note: Patient will discharge to [facility] located at [address] [place] [address]; . Facility will pick pulling machine tender pt at 11AM. Admin Bonnie ([phone]) who stated pt is accepted today. Pt is alert and oriented x2. Pt happy to be going to the facility. Pt denies suicidal or homicidal ideation. Pt denies visual/auditory hallucinations. Pts daughter ADRIANA Conteh ([phone]) is aware and agreeable. Pt will follow up with Dr. Duncan at the facility [address] [place] [address]; who will monitor and provide pts psychotropic medications. Pt presents with euthymic mood and congruent affect.
[2023-02-06] MEDS: ENSURE ENLIVE CHOC 237 ML CAN PO SCH ×2 (08:42→12:01)
[2023-02-06 09:35] VITALS: BP 147/67
[2023-02-06] MEDS: VENLAFAXINE XR 75 MG CAP.SR.24H PO SCH (09:35)
[2023-02-06] MEDS: CHOLECALCIFEROL 1,000 UNIT TABLET (VIT D3) PO SCH (09:35)
[2023-02-06] MEDS: VALSARTAN 80 MG TABLET PO SCH (09:35)
[2023-02-06] MEDS: CEPHALEXIN MONOHYDRATE 500 MG CAPSULE PO SCH (09:35)
[2023-02-06] MEDS: BUPROPION XL 150 MG TAB.ER.24 PO SCH (09:35)
--- NOTE | 2023-02-06 10:33 | NUR ---
RN-CO:Dr Choi gave discharge order and discontinue hold noted and carried out.
--- NOTE | 2023-02-06 12:20 | NUR ---
Patient discharged to [facility] in stable condition.Compliant with medications ,cooperative with treatment plans Patient denies SI/HI/AVH Behavior improved , VS stable ,psychiatric tx plans met ,medical tx plans differed for for continual monitoring .Educated pt about after care plan (Exit -care)and copy provided .Returned personal belongings to patient med list and prescriptions given and explained to patient able to verbalize understanding .Vs stable no c/o pain .Patient seen by and Danielle MEDICAL AFFAIRS SPECIALIST with discharge orders .Patient discharge at 1220 with staff from [facility] .
== END 2023-02-06 12:30 | DRG 885 ==
LOC: GPS 15:13
PROVIDERS: ADMIT Psychiatry & Neurology Psychiatry
DX: F33.2 Major depressive disorder, recurrent severe without psychotic features (principal); N39.0 Urinary tract infection, site not specified; I10 Essential (primary) hypertension; E78.5 Hyperlipidemia, unspecified; E03.9 Hypothyroidism, unspecified; I25.10 Atherosclerotic heart disease of native coronary artery without angina pectoris; B96.89 Other specified bacterial agents as the cause of diseases classified elsewhere; R32 Unspecified urinary incontinence; Z20.822 Contact with and (suspected) exposure to COVID-19
CPT/HCPCS: 36415; 71045-TC; 73080-TC; 73502; 80053-TC; 80061-TC; 81001; 82962-TC; 87081-TC; 87086-TC; 97116-TC; 97530-TC